=== PATIENT | male | born 1975 | race Caucasian/White ===

== ENCOUNTER 2017-01-13 22:43 | Emergency (ER) | payer SELFPAY ==
[~2017-01-13] VITALS: Ht 175.3 cm; Wt 113.4 kg
[~2017-01-13 22:43] MED LIST: BACTRIM DS TAB1 EACH PO; BACTROBAN22 GM TOP; CITALOPRAM HBR40 MG PO; CLINDAMYCIN HC150 MG PO; CLINDAMYCIN HC300 MG PO; IBUPROFEN600 MG PO; NAPROSYN375 MG PO; NORCO 5-325 TA1 EACH PO; POTASSIUM CHLO20 ME1 PO; VANCOCIN HCL125 MG IM/IV
--- NOTE | 2017-01-14 08:23 | EKG ---
[facility] [address] [facility] [place] [address] Signed Normal sinus rhythm Incomplete right bundle branch block Left anterior fascicular block Abnormal ECG No previous ECGs available Confirmed by STEFFEN LOUIE MD ([id number]) on 01/14/2017 8:23:01 AM Electronically Signed By: STEFFEN LOUIE MD 01/14/17 0823 PATIENT NAME: MOE LICONA TEMO Electrocardiogram DATE OF : 71 PHYSICIAN: STEFFEN LOUIE MD REPORT #: [id number] REPORT IS CONFIDENTIAL AND NOT TO BE RELEASED WITHOUT AUTHORIZATION
== END 2017-01-14 00:46 | disposition home or self-care (01) ==
LOC: ED 22:43
DX: R07.9 Chest pain, unspecified (principal); F17.200 Nicotine dependence, unspecified, uncomplicated; Z88.0 Allergy status to penicillin
CPT/HCPCS: 71020; 80053; 84484; 85025; 93005; 93010; 99284

== ENCOUNTER 2021-06-02 17:52 | Emergency (ER) | payer OTHER ==
[~2021-06-02] VITALS: Ht 175.3 cm; Wt 129.3 kg
[~2021-06-02 17:52] MED LIST changes: +ALEVE220 M1 PO; +CEPHALEXIN500 MG PO; +CLEOCIN HCL300 MG PO; +SILVADENE20 GM TOP
[2021-06-02] MEDS ORDERED: LASIX20 MG PO (20:07)
== END 2021-06-02 20:22 | disposition home or self-care (01) ==
LOC: ED 17:52
DX: R60.0 Localized edema (principal); F17.200 Nicotine dependence, unspecified, uncomplicated; Z88.0 Allergy status to penicillin
CPT/HCPCS: 36415; 80048; 83880; 85025; 96374; 99283-25; J1940

== ENCOUNTER 2022-03-07 05:50 | Day surgery (SDC) | payer OTHER ==
[~2022-03-07] VITALS: Ht 175.3 cm; Wt 131.8 kg
[~2022-03-07 05:50] MED LIST changes: +LASIX20 MG PO; +LASIX40 MG PO; +[UNRECOGNIZED DRUG - OTHER] PO
--- NOTE | 2022-03-07 08:43 | NUR ---
PT FADES IN AND OUT-RESPONDS WHEN SPOKEN TO. PTS' MOTHER ROGELIO AT BS. QUESTIONS ASKED WERE ANSWERED. ROGELIO WILL REMAIN FOR DC. PT REQUESTED PRAYER, WILL FOLLOW
--- NOTE | 2022-03-07 09:41 | NUR ---
0922 REPORT GIVEN TO KAMLESH HERRING. NO QUESTIONS AT THIS TIME. SHE WILL RESUME CARE. PATIENT IN OR AT THIS TIME. NO FUTHER NEEDS.
--- NOTE | 2022-03-07 10:09 | NUR ---
03/07/22 1009 Syeda Ortega 1004 PATIENT ARRIVES TO PACU UNRESPONSIVE TO PAIN. ORAL AIRWAY IN PLACE. RESP EVEN AND UNLABORED WITH INTERVENTION.
[2022-03-07] MEDS ORDERED: IBUPROFEN600 MG PO (10:32)
[2022-03-07] MEDS ORDERED: OXYCODON-ACETA1 EAC2 PO (10:32)
[2022-03-07] MEDS ORDERED: ACETAMINOPHEN500 MG PO (10:32)
[2022-03-07] MEDS ORDERED: BACTRIM DS TAB1 EACH PO (10:44)
--- NOTE | 2022-03-07 12:07 | NUR ---
1140: REPORT TAKEN FROM FAUSTINA WHITLOCK IN PACU. PT TRANSPORTED TO DAY SURGERY VIA STRETCHER. PT REPORTS 7/10 PAIN IN ABDOMEN AND RIGHT SHOULDER. PT DENIES NAUSEA. ABDOMENAL BINDER IN PLACE. ABDOMEN DRESSING CLEAN, DRY, AND INTACT. PT HAS DALIA DRAIN THAT IS DRAINING SMALL AMOUNT RED FLUID. PT APPEARS DROWSY. DENIES NEEDING BLANKET. PT IN AND OUT OF SLEEP WITH PILLOW ON ABDOMEN. ICE WATER AND ICED SPRITE AT BEDSIDE. CALL LIGHT WITHIN REACH. 1150: ROGELIO, PARTNER, AT BEDSIDE. ROGELIO ASKING TO SPEAK WITH DR ALMEIDA ABOUT PT. DR ALMEIDA COMES TO ROOM TO ANSWER QUESTIONS FOR PT'S PARTNER. PT REPORTS PAIN IN SHOULDER TO . DR ALMEIDA INSTRUCTS THIS RN TO GIVE MOTRIN OR TYLENOL FOR PAIN. 1200: THIS RN GAVE 600 MG MOTRIN PO.
--- NOTE | 2022-03-07 12:45 | NUR ---
CORRECTION TO PREVIOUS NOTES: PT'S MOTHER IS AT BEDSIDE, NOT PT'S PARTNER. 1245: PT'S MOTHER STATES PT REQUESTING TO USE URINAL. PT GIVEN URINAL AT BEDSIDE. PT REQUESTING TO URINATE IN PRIVACY.
--- NOTE | 2022-03-07 13:04 | NUR ---
PT UTILIZED URINAL AT BEDSIDE AND WAS ABLE TO URINATE 460 ML INDEPENDENTLY. PT RESTING IN BED. REPORTS 7/10 PAIN AND REQUESTING IBUPROFEN FOR PAIN. DENIES NAUSEA. PT MOTHER AT BEDSIDE. ABDOMINAL DRESSING CLEAN DRY AND INTACT. CHIN BANDAID APPEARS TO HAVE SMALL AMOUNT RED DRAINAGE. PER DOCTORS ORDER WE WILL NOT CHANGE BANDAID UNTIL 48 HRS. ICE WATER AND SPRITE AT BEDSIDE. CALL LIGHT WITHIN REACH.
--- NOTE | 2022-03-07 13:47 | NUR ---
MOM ROGELIO ASSISTING WITH EATING CANDYLLO
--- NOTE | 2022-03-07 14:57 | NUR ---
PT RESTING IN BED. PT DENIES NAUSEA. REPORTS PAIN 09/09. PT URINATED IN URINAL AT BEDSIDE, 500 MLS. PT STATES HE WOULD LIKE TO REST FOR AWHILE LONGER BEFORE ATTEMPTING TO AMBULATE. MOM ROGELIO AT BEDSIDE. ICE WATER AND CRACKERS AT BEDSIDE. CALL LIGHT WITHIN REACH.
--- NOTE | 2022-03-07 15:40 | NUR ---
1530: ASSISTED PATIENT TO SIT ON SIDE OF BED. TOLERATED THAT WELL. AFTER SITTING ON SIDE OF BED PATIENT ASSISTED TO STAND AND THEN WALK TO BATHROOM. GAIT STEADY. VOID. GAIT STEADY BACK TO ROOM. PATIENT ASSITED TO GET DRESSED BY THIS RN AND MOTHER. SITTING ON BEDSIDE. MOTHER IN ROOM. CALL LIGHT WITHIN REACH.
--- NOTE | 2022-03-07 16:08 | NUR ---
REVIEWED DISCHARGE INSTRUCTIONS WITH PT AND PT'S MOTHER ROGELIO. ANSWERED ALL QUESTIONS AND CONCERNS. INSTRUCTED MOTHER ROGELIO HOW TO EMPTY DALIA DRAIN. WROTE DOWN INFORMATION ABOUT WHEN TO GIVE PAIN MEDS NEXT. PT D/C FROM DAY SURGERY VIA WHEELCHAIR TO PERSONAL AUTOMOBILE TO MOTHER'S CAR.
--- NOTE | 2022-03-10 21:49 | OR ---
[facility] [address] [place], [place] [address] Signed DATE OF OPERATION: 03/07/2022 SURGEON: Alexandr Almeida MD PREOPERATIVE DIAGNOSES: 1. Large proboscoid symptomatic umbilical hernia without incarceration. Fascial defect 7.5 cm 2. Submental nodular skin lesion (2 cm). POSTOPERATIVE DIAGNOSES: 1. Large proboscoid symptomatic umbilical hernia without incarceration, fascial defect 7.5 cm 2. Submental nodular skin lesion (2 cm). PROCEDURES: 1. Repair of non-incarcerated umbilical hernia with implantation of Prolene mesh (underlay technique). Fascial defect 7.5 cm 2. Excision of 2 cm submental skin lesion ( excision sized 3.0 cm) ANESTHESIA: General endotracheal, Stepan Andrzej, HORTICULTURE TEACHER and local 20 mL of 0.25% Marcaine with epinephrine. INDICATION: This 46-year-old obese man is a patient of Dr. Divina Anderson. He has had a proboscoid type umbilical hernia which is fully reducible and with a fascial defect of about 5 to 6 cm. He has had the hernia for at least six years. He has associated constipation, but no blood per rectum. The hernia does reduce. The patient is now 285 pounds. The patient does have a history of substance abuse for which he has been in rehab and is abstinent of illicit drugs at this time. Additionally, he has a submental skin nodule, which was rather large. He is admitted at this time to undergo excision of the submental skin lesion as well as repair of the hernia. He understands the risk of bleeding, infection, recurrence, and other unforeseen complications and wished to proceed. FINDINGS: The fascial defect was approximately 6 cm at least. The properitoneal space was well-developed allowing for an 8 inch x 8 inch piece of Prolene mesh to be implanted in the properitoneal space covering the fascial defect very widely. The fascial defect Electronically Signed By: ALEXANDR ALMEIDA MD 03/10/22 2149 PATIENT NAME: MOE LICONA OPERATIVE REPORT DATE OF : 71 REPORT #: [id number] PHYSICIAN: ALEXANDR ALMEIDA MD PCP: DIVINA ANDERSON MD REPORT IS CONFIDENTIAL AND NOT TO BE RELEASED WITHOUT AUTHORIZATION [facility] [address] [place] [id number] Signed itself was closed additionally. A drain was placed. The submental skin lesion was innocuous and benign in appearance and excised completely. Excision size was about 3 cm in length. DESCRIPTION OF PROCEDURE: The patient was brought to the operating room, given a general endotracheal anesthetic. Preoperative antibiotic Ancef was given. Sequential compression device stockings were used and heparin subcutaneously administered. The submental skin lesion was examined and found to have no sign of infection or excoriation at this time. The umbilical hernia defect was at least three fingerbreadths wide and proboscoid in appearance when the patient was straining. Measured defect size was 7.5 cm. The abdomen was clipped and prepared with a chlorhexidine solution and draped sterilely. A curvilinear incision was made in the umbilical fold laterally. Dissection was carried through the subcutaneous tissue and dermis with electrocautery and blunt dissection. The hernia sac underlying the umbilical skin was freed with the electrocautery allowing for further dissection circumferentially. The fascial defect was ultimately from the hernia sac completely. The hernia sac had no sign of incarcerated viscus or anything of that sort. The properitoneal space was developed circumferentially with blunt electrocautery dissection without entry into the peritoneal space. The dissection was carried quite widely at least 10 cm circumferentially. The subcutaneous tissue was freed from the underlying fascia to allow for placement of sutures, but only in intermittent areas so as to avoid devascularization of the subcutaneous fat tissue. A segment of 12 inch x 12 inch Prolene mesh was cut to an 8 inch x 8 inch size. The corners were rounded and plans made for implantation of mesh in the properitoneal space. The mesh was secured with interrupted 0 Prolene sutures with Prolene pledgets circumferentially widely covering the fascial defect. The fascial defect was then reapproximated with interrupted 0 Prolene with Prolene pledgets in a horizontal mattress configuration securing the fascia over the mesh as well. Irrigation was undertaken and 20 mL of 0.25% Marcaine with epinephrine injected locally. Through a separate stab incision in the right lower quadrant, a 7 mm flat Krishna drain was placed over the area. This was secured to the skin with nylon suture. Bibiana layer was reapproximated with interrupted 2-0 Vicryl and skin closed with running subcuticular 3-0 Vicryl. Steri-Strips were applied as was some gauze to conform the redundant skin as well as an Acticoat dressing. The submental area was then separately prepped and draped. Elliptical excision of this mass was undertaken with a 15 blade. Excision size was 3.0 cm. Bleeding was controlled with electrocautery. The most cosmetically appropriate closure was with interrupted 4-0 nylon suture, which was Electronically Signed By: ALEXANDR ALMEIDA MD 03/10/22 2149 PATIENT NAME: MOE LICONA OPERATIVE REPORT DATE OF : 71 REPORT #: [id number] PHYSICIAN: ALEXANDR ALMEIDA MD PCP: DIVINA ANDERSON MD REPORT IS CONFIDENTIAL AND NOT TO BE RELEASED WITHOUT AUTHORIZATION [facility] [address] [place] [address] Kira Macias [id number] Signed accomplished without problem. Bacitracin was applied to the site as was a Band-Aid. An abdominal binder was then applied to the mid abdomen and he was carefully awakened without straining, coughing, or other stress to the hernia repair. He was transferred to the recovery room in good condition having suffered no complications. Sponge, needle, and instrument counts were reported as correct x3. MD ZITA Alberto/[id number] /[id number] cc: Divina Anderson MD Copies: DIVINA ANDERSON MD ~ Electronically Signed By: ALEXANDR ALMEIDA MD 03/10/22 2149 PATIENT NAME: MOE LICONA OPERATIVE REPORT DATE OF : 71 REPORT #: [id number] PHYSICIAN: ALEXANDR ALMEIDA MD PCP: DIVINA ANDERSON MD REPORT IS CONFIDENTIAL AND NOT TO BE RELEASED WITHOUT AUTHORIZATION
--- NOTE | 2022-03-11 12:14 | PATH ---
[facility] [address] [facility], [place] [address] Signed SPECIMEN(S): A ANTERIOR NECK SPECIMEN SOURCE: A. ANTERIOR NECK CLINICAL HISTORY: Umbilical hernia, lesion anterior neck. FINAL PATHOLOGIC DIAGNOSIS: Skin, anterior neck: - Papillomatous squamous keratosis. - Negative for significant atypical epithelial features or evidence of malignancy. JVR:carlitos:[id number] MICROSCOPIC EXAMINATION: Histologic sections of all submitted blocks are examined by light microscopy. These findings, together with the gross examination, support the pathologic diagnosis. GROSS DESCRIPTION: The specimen, labeled and designated "Shahnaz, T, " and designated on the requisition "anterior neck segmental skin lesion," is received in formalin and consists of a 2.1 x 1.4 x 0.6 cm unoriented portion of skin. The skin surface is pale pink and smooth with a pink-white velvety lesion that is 1.4 x 1.2 x 1.0 cm and is 0.1 cm from the closest resection margin. The specimen is inked, sectioned and entirely submitted in (A1-A2). FB (under the direct supervision of a pathologist) The Gross Description was prepared using a voice recognition system. The report was reviewed for accuracy; however, sound-alike word errors, addition and/or deletions may occur. If there is any question about this report, please contact Client Services. PERFORMING LABORATORY: The technical component was performed by [facility], [address] [place] [id number] (CLIA# [id number]). Professional interpretation was performed by [facility], [address] [place] [id number] (CLIA#: [id number]). Diagnostician: Woody Best MD PATIENT NAME: MOE LICONA PATHOLOGY DATE OF : 71 REPORT #: [id number] PHYSICIAN: [facility] PCP: DIVINA JOEL MD REPORT IS CONFIDENTIAL AND NOT TO BE RELEASED WITHOUT AUTHORIZATION [address] [address] Signed Pathologist Electronically Signed 03/11/2022 Copies: ~ PATIENT NAME: MOE LICONA PATHOLOGY DATE OF : 71 REPORT #: [id number] PHYSICIAN: [facility] PCP: DIVINA JOEL MD REPORT IS CONFIDENTIAL AND NOT TO BE RELEASED WITHOUT AUTHORIZATION
== END 2022-03-07 16:17 | disposition home or self-care (01) ==
LOC: DS 05:50
PROVIDERS: ATTEND Surgery
DX: K42.9 Umbilical hernia without obstruction or gangrene (principal); L57.0 Actinic keratosis; F19.11 Other psychoactive substance abuse, in remission; E66.01 Morbid (severe) obesity due to excess calories; Z86.19 Personal history of other infectious and parasitic diseases; Z86.79 Personal history of other diseases of the circulatory system
CPT/HCPCS: 00750; 88305; A9270; C1781; J0131; J0330; J0690; J1100; J1644; J1885; J2001; J2405; J2704; J3010; J7121